=== PATIENT | female | born 1975 | race African-American/Black ===

== ENCOUNTER 2017-02-10 23:31 | Emergency (ER) | payer BC ==
--- NOTE | 2017-02-11 08:09 | RAD ---
FRONTAL AND LATERAL IMAGING OF THE LEFT FEMUR: DATE: 02/11/17. COMPARISON: None. HISTORY: Pain, remote history of fracture status post ORIF. FINDINGS: There is an antegrade intramedullary massimo associated with the left femur with a proximal interlocking screw and distal interlocking screw. There is no evidence for hardware failure. No acute fracture o r evidence of dislocation. There is evidence of prior fracture involving the junction of the proxima l and middle third of the left femoral shaft with associated callus formation. IMPRESSION: Evidence of prior trauma status post open reduction internal fixation. No acute fracture seen. POS: [facility]
== END 2017-02-11 01:49 | disposition home or self-care (01) ==
LOC: ERS 23:31
DX: M54.42 Lumbago with sciatica, left side (principal); F17.210 Nicotine dependence, cigarettes, uncomplicated

== ENCOUNTER 2017-05-28 21:33 | Emergency (ER) | payer BC ==
[2017-05-28] MEDS ORDERED: Ketorolac Tromethamine 30 MG/ML VIAL ONE (23:08)
== END 2017-05-28 23:35 | disposition home or self-care (01) ==
LOC: ERS 21:33
DX: M79.652 Pain in left thigh (principal); F17.210 Nicotine dependence, cigarettes, uncomplicated; Z71.6 Tobacco abuse counseling
CPT/HCPCS: 96372; 99406; J1885

== ENCOUNTER 2018-01-13 20:38 | Emergency (ER) | payer BC ==
[2018-01-13] MEDS ORDERED: Ketorolac Tromethamine 60 MG/2 ML VIAL ONE (21:16)
== END 2018-01-13 21:41 | disposition home or self-care (01) ==
LOC: ERS 20:38
DX: M54.10 Radiculopathy, site unspecified (principal); M62.838 Other muscle spasm; F17.210 Nicotine dependence, cigarettes, uncomplicated
CPT/HCPCS: 96372; J1885